=== PATIENT | male | born 1975 | race Caucasian/White ===

== ENCOUNTER 2020-10-12 07:44 | Outpatient (REF) | payer OTHER, SELFPAY | END 2020-10-12 07:45 | disposition home or self-care (01) | LOC: HO.LAB 07:44 | PROVIDERS: PCP Internal Medicine; Visit Provider Internal Medicine | DX: Z20.828 Contact with and (suspected) exposure to other viral communicable diseases (principal) | CPT/HCPCS: C9803; U0003 ==

== ENCOUNTER 2021-01-18 09:28 | Outpatient (REF) | payer OTHER, SELFPAY ==
[2021-01-18 10:45] LABS: Alanine Aminotransferase 10 U/L (0-40); Albumin Level 3.9 g/dL (3.5-5.0); Alkaline Phosphatase 93 U/L (39-117); Anion Gap 13 (12-20); Aspartate Amino Transferase 12 U/L (5-37); Bilirubin Total 0.7 mg/dL (0.0-1.0); Blood Urea Nitrogen 7 mg/dL (9-16); Carbon Dioxide 28 mmol/L (22-29); Chloride 104 mmol/L (96-108); Cholesterol 115 mg/dL; Estimated Glomerular Filt Rate > 60; Glucose Fasting 89 mg/dL (60-99); HDL Cholesterol 37 mg/dL; LDL Cholesterol Calculated 69 mg/dl; Potassium 4.6 mmol/L (3.3-5.1); Sodium 140 mmol/L (135-145); Total Protein 6.3 g/dL (6.5-8.0); Triglycerides 48 mg/dL
== END 2021-01-18 09:29 | disposition home or self-care (01) ==
LOC: HO.LAB 09:28
PROVIDERS: PCP Internal Medicine; Visit Provider Internal Medicine
DX: E78.5 Hyperlipidemia, unspecified (principal); Z82.49 Family history of ischemic heart disease and other diseases of the circulatory system
CPT/HCPCS: 36415; 80053; 80061

== ENCOUNTER 2021-12-29 10:04 | Outpatient (REF) | payer OTHER, SELFPAY ==
--- NOTE | ~2021-12-29 | XR_ITS ---
EXAMINATION: XR ANKLE, RIGHT CLINICAL INFORMATION: Right ankle pain COMPARISON: None TECHNIQUE: AP, lateral, and mortise views of the right ankle. FINDINGS: The ankle mortise and subtalar joints are normal. No visible acute fracture, dislocation or subluxation seen. The soft tissues are normal. XR/XR ankle RT min 3V IMPRESSION: Unremarkable right ankle exam.
== END 2021-12-29 10:05 | disposition home or self-care (01) ==
LOC: HO.HMGCX 10:04
PROVIDERS: PCP Internal Medicine; Visit Provider Physician Assistant Medical
DX: S99.911A Unspecified injury of right ankle, initial encounter (principal); X58.XXXA Exposure to other specified factors, initial encounter; Y93.9 Activity, unspecified; Y92.9 Unspecified place or not applicable; Y99.9 Unspecified external cause status
CPT/HCPCS: 73610

== ENCOUNTER 2022-01-14 10:29 | Outpatient (REF) | payer OTHER, SELFPAY ==
--- NOTE | ~2022-01-14 | XR_ITS ---
EXAMINATION: XR SHOULDER, LEFT CLINICAL INFORMATION: Left shoulder pain. No injury. COMPARISON: None TECHNIQUE: AP external rotation, Grashey, scapular Y, and axillary views of the left shoulder. FINDINGS: The bones and soft tissues are normal. No fracture. Glenohumeral and acromioclavicular alignment is anatomic. Mild reduction in the glenohumeral joint space is noted No abnormal soft tissue calcifications. XR/XR shoulder LT min 2V IMPRESSION: Early mild degenerative changes left glenohumeral joint space. Otherwise unremarkable left shoulder exam.
== END 2022-01-14 10:30 | disposition home or self-care (01) ==
LOC: HO.XRAY 10:29
PROVIDERS: PCP Internal Medicine; Visit Provider Internal Medicine
DX: M25.512 Pain in left shoulder (principal)
CPT/HCPCS: 73030

== ENCOUNTER → 2022-02-04 13:50 | Outpatient (BNVA) | payer OTHER, SELFPAY | PROVIDERS: PCP Internal Medicine; Visit Provider Physician Assistant ==

== ENCOUNTER 2022-02-04 17:29 | Emergency (ER) | payer OTHER, SELFPAY ==
[2022-02-04 17:47] VITALS: BP 112/77; PULSE 79; RESP 17; TEMP 37.1; O2SAT 97; BMI 15.8
--- NOTE | 2022-02-04 17:53 | ED_ITS ---
HPI - Wound/Laceration General Chief Complaint: Wound/Laceration Stated Complaint: laceration/wound on knuckles Time Seen by Provider: 02/04/22 17:47 Source: patient Mode of arrival: ambulatory History of Present Illness HPI narrative: 46yo M with no sig PMHx presenting to the ED c/o laceration to Left 5th digit and small laceration to 1st digit s/p using razor stretch box tender glass frame fitter. Tetanus up-to-date. Denies numbness, tingling, weakness. Onset (ago): hour(s) Related Data Home Medications Medication Instructions Recorded Confirmed No Known Home Meds 01/09/21 01/13/22 Allergies Allergy/AdvReac Type Severity Reaction Status Date / Time codeine [CODEINE] Allergy Severe HEADACHES Verified 02/04/22 13:55 latex [LATEX] Allergy Severe ANAPHYLAXIS Verified 02/04/22 13:55 hydrocodone Allergy Unknown headache Verified 02/04/22 13:55 meperidine [Demerol] Allergy Unknown respiratory Verified 02/04/22 13:55 depression From ANCEF Allergy Severe HIVES Uncoded 01/13/22 17:30 Review of Systems Review of Systems: Constitutional: No Fever, No Chills ENT/Mouth: No Ear Pain, No Nasal Congestion, No sore throat Cardiovascular: No Chest Pain, No SOB Respiratory: No Cough, No Sputum, No Wheezing Gastrointestinal: No Nausea, No Vomiting, No Abdominal pain Genitourinary:, No Dysuria, No Flank Pain Musculoskeletal: +joint pain, No Myalgias, No Joint Swelling Skin: + Skin Lesions, No rash Neuro: No Weakness, No Numbness, No Paresthesias Yes all other systems are reviewed and are negative Neurologic: Denies Sensory deficit (Neuro) [facility] Past Medical History Attestation statement: The following information was validated with the patient. Medical History Encounter for physical examination Family history of hypertension Hammertoe of left foot Left shoulder pain Spina bifida Surgical History History of appendectomy History of hammertoe correction History of surgery Family History Family History Father Diabetes Hypertension Mother Asthma Maternal Grandfather Lung cancer Paternal Grandfather Lung cancer Maternal Grandmother CVD (cardiovascular disease) Stroke Diabetes Hypertension Social History Social History Housing: Apartment Alcohol intake: former Patient Tobacco Use Status: Current everyday Tobacco user Tobacco use type: Cigarette Cigarettes Per Day: 15 e-Cigarette/Vaping Use: Never Used Second Hand Smoke Exposure: No Advance Directives: No Advance Directives Information Provided: No service: No Current occupational status: unemployed Physical Exam Vital Signs: Vital Signs: Last Vital Signs Temp 98.8 F 02/04/22 17:47 Pulse 79 02/04/22 17:47 Resp 17 02/04/22 17:47 BP 112/77 02/04/22 17:47 Pulse Ox 97 02/04/22 17:47 BMI result Body Mass Index 15.8 Const: General: cooperative, healthy appearing and no acute distress Orientation/consciousness: patient oriented x3 Limitations: no limitations HENMT: Head: Yes normal to inspection Ears: hearing grossly normal bilaterally General nose exam: Normal external nose present Face and sinus: Yes normal facial exam Eyes: General: appearance normal, both eyes and all related structures EOM: EOMs intact bilaterally Neck: Neck: Yes normal visual inspection and Yes no meningeal signs Resp: Effort & Inspection: normal respiratory effort and no respiratory distress Cardio: Rate: regular rate Peripheral pulses: radial pulses present Skin: Other: +2cm laceration noted to left 5th PIP. Full flexion and extension intact. No underlying structures visible. Sensation intact to light touch. NV intact +1cm superficial laceration to left 1st digit just distal to DIP Rashes: no rashes Neuro: General: patient oriented x3 and no meningeal signs Sensory Exam: No Sensory deficit (Neuro) Extrem: General: Yes normal to inspection MDM - Wound/Laceration MDM Narrative Medical decision making narrative: 46yo M with no sig PMHx presenting to the ED c/o laceration to Left 5th digit s/p using razor stretch box tender glass frame fitter. On exam VSS, NAD, physical exam as above, full range of motion intact to digits. First digit superficial laceration not needing repair. Tetanus up-to-date. Will repair 5th digit laceration with sutures. Plan: repair wound Differential Diagnosis Differential diagnosis: Likely laceration Medical Records Attestation: I reviewed the patient's medical records. Lab Data Attestation: I reviewed the patient's lab results. Procedures Laceration Laceration 1: Site: hand Side (If applicable): left Size (cm): 2.0 Description: linear Depth: simple, single layer Local Anesthetic: lidocaine 1% and other anesthetic (digital block) Amount of anesthesia used (mL): 4 Pre-repair: wound explored Skin layer closed with: nylon Size (cm): 4-0 Number of sutures: 4 Technique: simple, interrupted Discharge Plan Discharge Clinical Impression: Laceration Patient Disposition: Home, Self-Care Instructions: Finger Laceration (ED) Additional Instructions: Your wound was repaired today in the ED. Please return to any emergency department or urgent care in 7-10 days to have your stitches taken out. Keep dry and clean. Apply bacitracin or Neosporin. If area begins to look infected, is red, there is drainage or your fever please return to the ED After stitches, please apply anti scar cream like Moderna Prescriptions: No Action No Known Home Meds 0RF Referrals: ED Physician,Generic [Physician] - 1 week (Return to emergency department in 7- 10 days for suture removal)
[2022-02-04] MEDS: Lidocaine HCl 1 % MPF 5 ML VIAL SUBCUT (18:34)
== END 2022-02-04 18:37 | disposition home or self-care (01) ==
PROVIDERS: Emergency Provider Emergency Medicine Emergency Medical Services; PCP Internal Medicine
DX: S61.412A Laceration without foreign body of left hand, initial encounter (principal); M79.642 Pain in left hand; W26.0XXA Contact with knife, initial encounter; Y93.9 Activity, unspecified; Y92.9 Unspecified place or not applicable; Y99.9 Unspecified external cause status; Z79.899 Other long term (current) drug therapy
CPT/HCPCS: 12001; 99283; 99284

== ENCOUNTER → 2022-03-23 13:40 | Outpatient (BNVA) | payer OTHER, SELFPAY | PROVIDERS: PCP Internal Medicine; Visit Provider Physician Assistant | DX: M75.52 Bursitis of left shoulder (principal); S43.002D Unspecified subluxation of left shoulder joint, subsequent encounter | CPT/HCPCS: 20610; J1040 ==

== ENCOUNTER 2022-03-27 14:00 | Outpatient (RCR) | payer OTHER, SELFPAY ==
--- NOTE | 2022-02-27 14:56 | MHC.PT.EP ---
[facility] [place] Office [place] Office [place] Office [address] Tasha Stoddard [address] [phone] F: [phone] F: [phone] F: [phone] F: [phone] Physical Therapy Plan of Care Date of Evaluation: Date of Surgery: Diagnosis: unspecified subluxation of L shoulder, bursitis Assessment: 47 y/o RHD male referred to PT with unspecified subluxation of L shoulder and bursitis. 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 Currently reports pain and difficulty with reaching overhead, lifting, playing catch with daughter, and swimming. Examination shows decreased L shoulder A/PROM, decreased L shoulder strength, decreased B scapular strength, TTP infraspinatus and supraspinatus, and increased pain. S/s consistent with shoulder instability and ?labral involvement. Recommend PT 2x/week for 6 weeks to address impairments, implement HEP, and optimize functional mobility. Frequency and Duration: The patient will be seen 2x/week for 6 weeks Short Term Goals: 3 weeks 1. Compliance with HEP 2. Will report episodes of instability < 25% of the time Seconds Handler Goals: 6 weeks 1. I with HEP and self management of sx 2. Improve L shoulder strength by one MMT to facilitate lifting 3. Pt will be able to play catch (50% throwing force) and pain < 3/10 Treatment Plan: Modalities to reduce pain, spasms and effusion. Manual therapy to restore motion and function. Therapeutic exercise to improve strength and flexibility. Neuromuscular re-education for posture and balance. Therapeutic activities to return to functional activities of daily living. Electronically signed by: Yary Saab PT DPT Please sign and return to therapist. Thank you for your referral.
--- NOTE | 2022-05-08 08:32 | MHC.PT.DC ---
[facility] [place] Office [place] Office [place] Office [address] Tasha Stoddard [address] [phone] F: [phone] F: [phone] F: [phone] F: [phone] Physical Therapy Discharge Report Diagnosis: unspecified subluxation of L shoulder, bursitis Date of Surgery: Date of Evaluation: 02/27/22 Date of Discharge: 05/08/22 Treatments to Date: 5 Cancellations to Date: 0 No Shows to Date: 0 Discharge Status: Independent with HEP Patient Elected to Stop Discharge Summary: Pt I with HEP and will be continuing PT in another clinic closer to home as he is currently driving very far for this location. Electronically signed by: Yary Saab PT Please sign and return to therapist. Thank you for your referral.
== END 2022-05-08 08:33 | disposition home or self-care (01) ==
LOC: HO.PTCHIC 14:00
PROVIDERS: PCP Internal Medicine; Visit Provider Physician Assistant
DX: S43.002A Unspecified subluxation of left shoulder joint, initial encounter (principal); M75.52 Bursitis of left shoulder
CPT/HCPCS: 97110; 97140; 97162